=== PATIENT | male | born 1950 | race Caucasian/White ===

== ENCOUNTER 2017-02-22 10:12 | Emergency (ER) | payer MEDICARE, BC ==
[~2017-02-22] VITALS: Ht 170.2 cm; Wt 127.0 kg
[~2017-02-22 10:12] MED LIST: AMIODARONE400 MG PO; BAYER ASPIRIN E81 MG PO; CARVEDILOL25 MG PO; CEPHALEXIN500 MG OR; CIPRO500 MG OR; CLONIDINE0.2 MG OR; COUMADIN5 MG PO; FUROSEMIDE40 MG PO; GLIPIZIDE5 MG PO; IBUPROFEN600 MG PO; JANTOVEN2.5 MG PO; KEFLEX500 MG OR; LASIX 20 MG TAB20 MG PO; LOSARTAN POT100 MG PO; METOPROL TAR25 M1 PO; NO HOME MEDS; ROBITUSSIN AC10 ML OR; SPIRONOLACTONE25 MG PO; TAMSULOSIN0.4 MG PO; WARFARIN2 MG PO
[2017-02-22 10:56] LABS: HEMATOCRIT 41.8 % (39.0-50.0); HEMOGLOBIN 14.6 g/dl (14.0-18.0); IMMATURE GRANULOCYTES 1.1 % (0.0-1.0); MEAN CELL VOLUME 82.8 fL CALC (80.0-100.0); MEAN CORPUSCULAR HGB 28.9 pG CALC (26.0-32.0); MEAN CORPUSCULAR HGB CONC 34.9 g/L CALC (32.0-36.0); NEUT# 4.75 thou/uL (1.82-7.42); RED BLOOD COUNT 5.05 mill/uL (4.70-6.10); RED CELL DISTRI WIDTH 13.8 % (11.5-15.5)
[2017-02-22 11:08] LABS: ALBUMIN 4.4 g/dL (3.2-5.0); ALKALINE PHOSPHATASE 83 u/l (38-126); ANION GAP 16 (6-22 (CALC)); BILIRUBIN, TOTAL 0.6 mg/dL (0.0-1.4); BUN 21 mg/dL (8-23); BUN/CREATININE RATIO 19 (12-20 (CALC)); CALCIUM 9.1 mg/dL (8.4-10.2); CARBON DIOXIDE 26 mmol/l (22-30); CHLORIDE 102 mmol/l (95-108); CREATININE 1.1 mg/dL (0.7-1.3); GFR > 60 ML/MIN (>=60 (CALC)); GFR FOR AFR.AMER. > 60 ML/MIN (>=60 (CALC)); GLUCOSE 239 mg/dL (82-115); POTASSIUM 3.6 mmol/l (3.5-5.1); SGOT/AST 39 u/l (19-48); SGPT/ALT 45 u/l (11-66); SODIUM 140 mmol/l (137-146); TOTAL PROTEIN 8.2 g/dL (6.3-8.2)
[2017-02-22 11:57] LABS: URINE BILIRUBIN - DIPSTICK NEGATIVE (NEGATIVE); URINE BLOOD DIPSTICK TRACE-INTACT (NEGATIVE); URINE CLARITY CLEAR; URINE COLOR YELLOW; URINE GLUCOSE - DIPSTICK 250 mg/dL (NEGATIVE); URINE KETONE NEGATIVE (NEGATIVE); URINE LEUK ESTERASE NEGATIVE (NEGATIVE); URINE NITRITE - DIPSTICK NEGATIVE (Negative); URINE PH 5.5 (4.5-8.0); URINE PROTEIN - DIPSTICK 30 mg/dL (NEG-TRACE); URINE SPECIFIC GRAVITY 1.025; URINE UROBILINOGEN - DIPSTICK 0.2 E.U./dL (0.2)
[2017-02-22 11:58] LABS: URINE SQUAMOUS EPITHELIAL CELL FEW EPI/hpf (0-FEW)
[2017-02-22 11:59] LABS: URINE MUCUS FEW hpf (NONE-FEW)
[2017-02-22] MEDS ORDERED: NAPROSYN500 MG PO (13:31)
[2017-02-22 13:51] VITALS: BP 201/97
== END 2017-02-22 14:02 | disposition home or self-care (01) ==
LOC: ED 10:12
PROVIDERS: Emergency Medicine
DX: R10.31 Right lower quadrant pain (principal)
CPT/HCPCS: J1650; Q9967

== ENCOUNTER 2017-05-16 09:25 | Emergency (ER) | payer MEDICARE, BC ==
[~2017-05-16] VITALS: Ht 170.2 cm; Wt 100.0 kg
[~2017-05-16 09:25] MED LIST changes: +NAPROSYN500 MG PO
[2017-05-16 09:49] VITALS: BP 186/99
[2017-05-16] MEDS ORDERED: PERCOCET 5/325M1 TAB PO (09:51)
== END 2017-05-16 10:12 | disposition home or self-care (01) ==
LOC: ED 09:25
DX: M23.92 Unspecified internal derangement of left knee (principal); I10 Essential (primary) hypertension; E11.9 Type 2 diabetes mellitus without complications; I48.91 Unspecified atrial fibrillation; G47.30 Sleep apnea, unspecified

== ENCOUNTER 2017-12-05 18:59 | Emergency (ER) | payer MEDICARE, BC ==
[~2017-12-05] VITALS: Ht 170.2 cm; Wt 118.2 kg
[~2017-12-05 18:59] MED LIST changes: +PERCOCET 5/325M1 TAB PO
[2017-12-05] MEDS ORDERED: ULTRAM50 M1 PO (20:45)
[2017-12-05 20:50] VITALS: BP 179/91
== END 2017-12-05 20:50 | disposition home or self-care (01) ==
LOC: ED 18:59
DX: S76.111A Strain of right quadriceps muscle, fascia and tendon, initial encounter (principal); S20.211A Contusion of right front wall of thorax, initial encounter; M17.11 Unilateral primary osteoarthritis, right knee; S43.401A Unspecified sprain of right shoulder joint, initial encounter; W01.0XXA Fall on same level from slipping, tripping and stumbling without subsequent striking against object, initial encounter; Y92.009 Unspecified place in unspecified non-institutional (private) residence as the place of occurrence of the external cause

== ENCOUNTER 2018-02-09 16:19 | Inpatient (IN) | payer MEDICARE, BC ==
[~2018-02-09] VITALS: Ht 170.2 cm; Wt 113.0 kg
[~2018-02-09 16:19] MED LIST changes: +ULTRAM50 M1 PO
[2018-02-09 16:51] VITALS: BP 138/86
[2018-02-09 17:07] LABS: IMMATURE GRANULOCYTES 0.7 % (0.0-1.0); MEAN CELL VOLUME 81.3 fL CALC (80.0-100.0); MEAN CORPUSCULAR HGB 24.8 pG CALC (26.0-32.0); MEAN CORPUSCULAR HGB CONC 30.5 g/L CALC (32.0-36.0); NEUT# 6.54 thou/uL (1.82-7.42); RED BLOOD COUNT 4.27 mill/uL (4.70-6.10); RED CELL DISTRI WIDTH 17.2 % (11.5-15.5)
[2018-02-09 17:11] LABS: HEMATOCRIT 34.7 % (39.0-50.0); HEMOGLOBIN 10.6 g/dl (14.0-18.0)
[2018-02-09 17:29] LABS: INTERNATIONAL NORMALIZED RATIO 4.1 RATIO (0.7-1.3)
[2018-02-09 17:31] LABS: CREATININE 1.7 mg/dL (0.7-1.3); POTASSIUM 3.7 mmol/l (3.5-5.1)
[2018-02-09 17:32] LABS: PROTHROMBIN TIME 46.9 SECONDS (9.0-12.5)
[2018-02-09 19:22] VITALS: BP 139/84
[2018-02-09 21:10] LABS: URINE BILIRUBIN - DIPSTICK NEGATIVE (NEGATIVE); URINE BLOOD DIPSTICK NEGATIVE (NEGATIVE); URINE COLOR YELLOW; URINE GLUCOSE - DIPSTICK NEGATIVE (NEGATIVE); URINE KETONE NEGATIVE (NEGATIVE); URINE LEUK ESTERASE NEGATIVE (NEGATIVE); URINE NITRITE - DIPSTICK NEGATIVE (Negative); URINE PROTEIN - DIPSTICK NEGATIVE (NEG-TRACE); URINE UROBILINOGEN - DIPSTICK 0.2 E.U./dL (0.2)
[2018-02-09 21:13] LABS: URINE CLARITY CLEAR
[2018-02-10 00:25] VITALS: BP 144/88
[2018-02-10 05:39] VITALS: BP 151/95
[2018-02-10 05:41] LABS: ALBUMIN 3.4 g/dL (3.2-5.0); BILIRUBIN, TOTAL 0.7 mg/dL (0.0-1.4); CREATININE 1.8 mg/dL (0.7-1.3); TOTAL PROTEIN 7.4 g/dL (6.3-8.2)
[2018-02-10 05:49] LABS: POTASSIUM 4.5 mmol/l (3.5-5.1)
[2018-02-10 06:10] LABS: TSH, 3RD GENERATION 3.49 uIU/mL (0.47 - 4.68)
[2018-02-10 08:07] LABS: INTERNATIONAL NORMALIZED RATIO 4.1 RATIO (0.7-1.3)
[2018-02-10 08:11] LABS: PROTHROMBIN TIME 46.8 SECONDS (9.0-12.5)
[2018-02-10 08:14] VITALS: BP 144/93
[2018-02-10] MEDS ORDERED: AMIODARONE200 MG PO (10:43)
[2018-02-10] MEDS ORDERED: COUMADIN5 MG PO (10:43)
[2018-02-10] MEDS ORDERED: LOPRESSOR50 M1 PO (10:44)
[2018-02-10] MEDS ORDERED: KLOR-CON 1010 MEQ PO (10:44)
[2018-02-10] MEDS ORDERED: IBUPROFEN200 MG PO (10:45)
[2018-02-10 12:00] VITALS: BP 126/82
[2018-02-10 15:12] VITALS: BP 140/88
[2018-02-10 19:00] VITALS: BP 126/79
[2018-02-11 04:05] VITALS: BP 142/97
[2018-02-11 05:09] LABS: HEMATOCRIT 36.6 % (39.0-50.0); HEMOGLOBIN 10.8 g/dl (14.0-18.0); IMMATURE GRANULOCYTES 0.6 % (0.0-1.0); MEAN CELL VOLUME 82.1 fL CALC (80.0-100.0); MEAN CORPUSCULAR HGB 24.2 pG CALC (26.0-32.0); MEAN CORPUSCULAR HGB CONC 29.5 g/L CALC (32.0-36.0); NEUT# 4.83 thou/uL (1.82-7.42); RED BLOOD COUNT 4.46 mill/uL (4.70-6.10); RED CELL DISTRI WIDTH 17.1 % (11.5-15.5)
[2018-02-11 05:11] LABS: ALBUMIN 3.8 g/dL (3.2-5.0); BILIRUBIN, TOTAL 0.8 mg/dL (0.0-1.4); CHOLESTEROL HDL RATIO 4.8 (<4.4 (CALC)); CREATININE 1.6 mg/dL (0.7-1.3); POTASSIUM 4.7 mmol/l (3.5-5.1); TOTAL PROTEIN 8.2 g/dL (6.3-8.2)
[2018-02-11 05:18] LABS: PROTHROMBIN TIME 45.8 SECONDS (9.0-12.5)
[2018-02-11 07:18] VITALS: BP 142/92
[2018-02-11 12:59] VITALS: BP 152/106
[2018-02-11 16:26] VITALS: BP 151/98
[2018-02-11 19:07] VITALS: BP 148/97
[2018-02-12 00:02] VITALS: BP 145/91
[2018-02-12 04:05] VITALS: BP 162/85
[2018-02-12 06:05] LABS: HEMATOCRIT 38.4 % (39.0-50.0); HEMOGLOBIN 11.4 g/dl (14.0-18.0); IMMATURE GRANULOCYTES 0.8 % (0.0-1.0); MEAN CELL VOLUME 81.5 fL CALC (80.0-100.0); MEAN CORPUSCULAR HGB 24.2 pG CALC (26.0-32.0); MEAN CORPUSCULAR HGB CONC 29.7 g/L CALC (32.0-36.0); NEUT# 5.28 thou/uL (1.82-7.42); RED BLOOD COUNT 4.71 mill/uL (4.70-6.10); RED CELL DISTRI WIDTH 17.1 % (11.5-15.5)
[2018-02-12 06:15] LABS: ALBUMIN 3.9 g/dL (3.2-5.0); BILIRUBIN, TOTAL 0.9 mg/dL (0.0-1.4); CREATININE 1.6 mg/dL (0.7-1.3); POTASSIUM 4.3 mmol/l (3.5-5.1); TOTAL PROTEIN 8.3 g/dL (6.3-8.2)
[2018-02-12 07:15] VITALS: BP 151/88
[2018-02-12 07:52] VITALS: BP 151/88
[2018-02-12] MEDS ORDERED: Levaquin PO (08:45)
[2018-02-12] MEDS ORDERED: OXY1 (08:46)
== END 2018-02-12 10:20 | disposition home health service (06) | DRG 292 ==
LOC: MS2 16:19
PROVIDERS: ADMIT Internal Medicine Geriatric Medicine; ATTEND Internal Medicine Geriatric Medicine
DX: I11.0 Hypertensive heart disease with heart failure (principal); I50.9 Heart failure, unspecified; Z68.41 Body mass index [BMI] 40.0-44.9, adult; F11.20 Opioid dependence, uncomplicated; I48.2 Chronic atrial fibrillation; E66.01 Morbid (severe) obesity due to excess calories; E11.9 Type 2 diabetes mellitus without complications; H91.90 Unspecified hearing loss, unspecified ear; I25.10 Atherosclerotic heart disease of native coronary artery without angina pectoris; F41.9 Anxiety disorder, unspecified; M54.5 Low back pain; M79.7 Fibromyalgia; G47.30 Sleep apnea, unspecified; R09.02 Hypoxemia; Z79.01 Long term (current) use of anticoagulants

== ENCOUNTER 2018-03-01 18:18 | Emergency (ER) | payer MEDICARE, BC ==
[~2018-03-01] VITALS: Ht 170.2 cm; Wt 115.9 kg
[~2018-03-01 18:18] MED LIST changes: +AMIODARONE200 MG PO; +IBUPROFEN200 MG PO; +KLOR-CON 1010 MEQ PO; +LOPRESSOR50 M1 PO; +Levaquin PO; +OXY1
[2018-03-01] MEDS ORDERED: BACTROBAN TOP (19:24)
[2018-03-01] MEDS ORDERED: KEFLEX500 M1 PO (19:24)
[2018-03-01 19:47] VITALS: BP 138/83
== END 2018-03-01 19:47 | disposition home or self-care (01) ==
LOC: ED 18:18
DX: S80.811A Abrasion, right lower leg, initial encounter (principal); L03.115 Cellulitis of right lower limb; W22.09XA Striking against other stationary object, initial encounter; Y93.E1 Activity, personal bathing and showering; Y92.002 Bathroom of unspecified non-institutional (private) residence as the place of occurrence of the external cause

== ENCOUNTER → 2018-07-14 | Outpatient (REF) | payer MEDICARE, BC ==
[~2018-07-14] MED LIST changes: +BACTROBAN TOP; +KEFLEX500 M1 PO
[2018-07-14 08:15] LABS: HEMATOCRIT 38.9 % (39.0-50.0); IMMATURE GRANULOCYTES 0.9 % (0.0-5.0); MEAN CORPUSCULAR HGB 27.4 pG CALC (26.0-32.0); MEAN CORPUSCULAR HGB CONC 33.4 g/L CALC (32.0-36.0); NEUT# 4.57 thou/uL (1.82-7.42); RED BLOOD COUNT 4.74 mill/uL (4.70-6.10); RED CELL DISTRI WIDTH 15.9 % (11.5-15.5)
[2018-07-14 08:17] LABS: MEAN CELL VOLUME 82.1 fL CALC (80.0-100.0)
[2018-07-14 08:31] LABS: ALBUMIN 3.7 g/dL (3.2-5.0); ALKALINE PHOSPHATASE 79 u/l (38-126); ANION GAP 13 (6-22 (CALC)); BILIRUBIN, TOTAL 0.5 mg/dL (0.0-1.4); BUN 19 mg/dL (8-23); BUN/CREATININE RATIO 15 (12-20 (CALC)); CALCULATED LDLCHOLESTEROL 56 mg/dL (62-129 (CALC)); CARBON DIOXIDE 31 mmol/l (22-30); CHLORIDE 99 mmol/l (95-108); CHOLESTEROL HDL RATIO 2.9 (<4.4 (CALC)); CREATININE 1.2 mg/dL (0.7-1.3); GFR 60 ML/MIN (>=60 (CALC)); GFR FOR AFR.AMER. > 60 ML/MIN (>=60 (CALC)); HDL CHOLESTEROL 41 mg/dL (>=40); POTASSIUM 3.4 mmol/l (3.5-5.1); SGOT/AST 65 u/l (19-48); SODIUM 141 mmol/l (137-146); TOTAL CHOLESTEROL 117 mg/dl (0-199); TOTAL PROTEIN 7.6 g/dL (6.3-8.2); TRIGLYCERIDES REFLEX TO dLDL 102 mg/dl (30-149); VLDL CHOLESTROL 20 mg/dl (4-45 (CALC))
== END | disposition home or self-care (01) ==
LOC: LAB 07:07
PROVIDERS: ATTEND Internal Medicine Geriatric Medicine
DX: I10 Essential (primary) hypertension (principal); E11.9 Type 2 diabetes mellitus without complications; Z12.11 Encounter for screening for malignant neoplasm of colon; R19.5 Other fecal abnormalities; M54.2 Cervicalgia; M50.30 Other cervical disc degeneration, unspecified cervical region
CPT/HCPCS: G0328